=== PATIENT | female | born 1985 | race Caucasian/White ===

== ENCOUNTER 2021-07-09 22:58 | Emergency (ER) | payer MEDICAID ==
[~2021-07-09] VITALS: Ht 167.6 cm; Wt 99.8 kg
[2021-07-10 01:11] VITALS: BP 109/70
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
[2021-07-10] MEDS ORDERED: VANCOMYCIN 1 GM VIAL ONE (01:41)
[2021-07-10] MEDS ORDERED: ACETAMINOPHEN ES 500 MG TABLET ONE (01:41)
[2021-07-10] MEDS ORDERED: CEFEPIME 1 GM in IV D5W 50 ML IV ONE (02:00)
[2021-07-10] MEDS ORDERED: VANCOMYCIN 1 GM in IV D5W 250 ML IV ONE (02:00)
[2021-07-10] MEDS ORDERED: ACETAMINOPHEN ES 500 MG TABLET PO ONE (02:00)
--- NOTE | 2021-07-10 02:00 | NUR ---
XRAY AT BEDSIDE
--- NOTE | 2021-07-10 02:48 | NUR ---
Patient eloped from facility. ER MD notified. No IV LINE.
== END 2021-07-10 02:50 | disposition home or self-care (01) ==
LOC: ER 23:03
DX: L03.116 Cellulitis of left lower limb (principal); F17.200 Nicotine dependence, unspecified, uncomplicated; Z88.0 Allergy status to penicillin; Z60.2 Problems related to living alone
CPT/HCPCS: 73590-TC; 73630-TC; J0692; J3370; J7060